=== PATIENT | male | born 1995 | race Caucasian/White ===

== ENCOUNTER 2018-01-13 07:57 | Emergency (ER) | payer BC ==
[2018-01-13] MEDS ORDERED: TETRACAINE HCL 0.5% OPH SOLN 2 ML OD ONE (08:17)
--- NOTE | 2018-01-13 08:51 | ER Document Report ---
HPI - HPI Patient complains to provider of: eye injury Onset: Other - 2 days ago Onset/Duration: Persistent Quality of pain: Burning Pain Level: 4 Context: Patient states that his dog got her nail underneath his right eyelid and he is worried that he may have scratched his eye. Patient complains of right eye tenderness with sensitivity to light. Patient does wear glasses. Patient denies any use of contact lenses. Associated Symptoms: Other - Right eye pain. denies: Headache Exacerbated by: Denies Relieved by: Denies Similar symptoms previously: Yes Recently seen / treated by doctor: No - ROS ROS below otherwise negative: Yes Systems Reviewed and Negative: Yes All other systems reviewed and negative - CONSTITUTIONAL Constitutional: DENIES: Fever, Chills - EENT EENT: REPORTS: Eye problems - RESPIRATORY Respiratory: DENIES: Trouble Breathing, Coughing - GASTROINTESTINAL Gastrointestinal: DENIES: Nausea - MUSCULOSKELETAL Musculoskeletal: DENIES: Extremity pain, Neck Pain - DERM Skin Color: Normal Skin Problems: None Past Medical History - General Information source: Patient - Social History Smoking Status: Current Every Day Smoker Chew tobacco use (# tins/day): No Smoking Education Provided: Yes Frequency of alcohol use: None Drug Abuse: None Occupation: [employer] Lives with: Family Family History: Reviewed & Not Pertinent Patient has suicidal ideation: No Patient has homicidal ideation: No - Medical History Medical History: Negative Renal/ Medical History: Denies: Hx Peritoneal Dialysis Surgical Hx: Negative Vertical Provider Document - CONSTITUTIONAL Agree With Documented VS: Yes Exam Limitations: No Limitations General Appearance: WD/WN, No Apparent Distress - INFECTION CONTROL TRAVEL OUTSIDE OF THE [place] IN LAST 30 DAYS: No - HEENT HEENT: Atraumatic, Normocephalic, PERRLA Notes: Extraocular movements intact, no fluorescein uptake, no corneal abrasion, ulcer , foreign body or dendrite. Patient with tenderness to sclera the superior aspect of the eye, no obvious laceration - NECK Neck: Normal Inspection - RESPIRATORY Respiratory: Breath Sounds Normal, No Respiratory Distress - CARDIOVASCULAR Cardiovascular: Regular Rate, Regular Rhythm - MUSCULOSKELETAL/EXTREMETIES Musculoskeletal/Extremeties: MAEW - NEURO Level of Consciousness: Awake, Alert, Appropriate Motor/Sensory: No Motor Deficit - DERM Integumentary: Warm, Dry, No Rash Course - Re-evaluation Re-evalutation: 01/13/[address] Urbano regarding patient presentation, with plan to treat with topical antibiotics at this time with ophthalmology follow-up. - Vital Signs Vital signs: Temp Pulse Resp BP Pulse Ox 98.6 F 85 16 130/76 H 99 01/13/18 08:02 01/13/18 08:02 01/13/18 08:02 01/13/18 08:02 01/13/18 08:02 Discharge - Discharge Clinical Impression: Abrasion of sclera of right eye Qualifiers: Encounter type: initial encounter Qualified Code(s): S05.8X1A - Other injuries of right eye and orbit, initial encounter Condition: Stable Disposition: HOME, SELF-CARE Instructions: Antibiotic Therapy ([facility]), Eye Injury ([facility]) Additional Instructions: Return immediately for any new or worsening symptoms Followup with your primary care provider, call tomorrow to make a followup appointment 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 Forms: Smoking Cessation Education, Return to Work Referrals: MANSOOR HURLEY DO [ACTIVE STAFF] - Follow up tomorrow
[2018-01-13 10:01] VITALS: BP 115/55
== END 2018-01-13 10:00 | disposition home or self-care (01) ==
LOC: ER 07:57
DX: S05.8X1A Other injuries of right eye and orbit, initial encounter (principal); W54.1XXA Struck by dog, initial encounter; Y93.K9 Activity, other involving animal care; F17.200 Nicotine dependence, unspecified, uncomplicated
CPT/HCPCS: 99283